=== PATIENT | female | born 1930 | race Caucasian/White ===

== ENCOUNTER 2016-11-01 08:56 | Day surgery (SDC) | payer OTHER ==
[2016-10-31 09:52] VITALS: BMI 21.6
[2016-11-01] MEDS ORDERED: MIDAZOLAM HCL 2 MG/2 ML SINGLE DOSE VIAL ONE (10:24)
[2016-11-01] MEDS ORDERED: ceFAZolin SODIUM 1 GM VIAL ONE (10:39)
[2016-11-01] MEDS ORDERED: ceFAZolin SODIUM 1 GM VIAL IVPB ONE (10:45)
[2016-11-01] MEDS ORDERED: ePHEDrine SULFATE 50 MG/1 ML AMPULE ONE (11:08)
[2016-11-01] MEDS ORDERED: NEOSTIGMINE METHYLSULFATE 0.5 MG/1 ML - 10 ML MDV ONE (11:20)
[2016-11-01] MEDS ORDERED: GLYCOPYRROLATE 0.2 MG/1 ML VIAL ONE (11:21)
--- NOTE | 2016-11-01 11:31 | OP ---
Operative Note - Note: Operative Date: 11/01/16 Pre-Operative Diagnosis: bladder tumor Operation: TURBT Findings: multiple tumors at trigone and post wall, largest at left trigone Post-Operative Diagnosis: Same as Pre-op Surgeon: Justo Luna Anesthesia: General Specimens Removed: bladder tumor Estimated Blood Loss (mls): 5
[2016-11-01] MEDS ORDERED: oxyCODONE HCL 5 MG TABLET PO PRN (11:33)
[2016-11-01] MEDS ORDERED: ONDANSETRON 4 MG/2 ML VIAL IVPUSH PRN (11:39)
[2016-11-01] MEDS ORDERED: ELECTROLYTE-148 SOLN 1,000 ML IV SCH (12:00)
--- NOTE | 2016-11-01 13:34 | OP ---
DATE OF OPERATION: 11/01/2016 PREOPERATIVE DIAGNOSIS: Multiple bladder tumors. POSTOPERATIVE DIAGNOSIS: Multiple bladder tumors. PROCEDURE: Cystoscopy, transurethral resection of bladder tumors. SURGEON: Juliet Quintero MD INDICATION: The patient is an 86-year-old female noted to be multiple bladder tumors on both cystoscopy and CT scan. She was taken to the OR for a resection. Risks, benefits, and alternatives discussed. Patient consented. DESCRIPTION OF PROCEDURE: After informed consent was obtained, the patient was taken to the OR and placed supine on the operating room table. Cardiac monitoring was administered. General anesthesia was established. She was prepped and draped in the dorsal lithotomy position. She was given a gram of Ancef. The resectoscope was inserted into the anterior urethra without difficulty and into the bladder. There were multiple papillary tumors noted on the right side of the bladder and posterior wall. The right ureteral orifice was normal. There was also some bladder tumor noted on the neck. Then on the left side of the bladder, there was a very different appearing bladder tumor that appeared sessile in nature with no visualization of the left ureteral orifice. The bladder tumors were resected in their entirety, and the bladder neck tumor was sent separately from the other tumors. All bleeding sites were fulgurated. Efflux was never seen coming from the area where the left ureteral orifice ought to be. The resectoscope was then removed, and a Narvaez was then placed to straight drainage. Clear urine was retrieved. The patient was awoken from anesthesia and transferred to the recovery room in stable condition. There were no complications. Estimated blood loss was minimal. JULIET QUINTERO M.D. [id number]
[2016-11-01 14:57] VITALS: BP 150/59; PULSE 62
[2016-11-01 15:15] VITALS: TEMP 97.4
--- NOTE | 2016-11-02 13:18 | PATH ---
Surgical Pathology Report Patient Name: TIFFANY TARANGO [facility]. Rec. #: [id number] /Age/Gender: 1930 (Age: 86) / F Account: [id number] Location: [facility] SURGICAL Taken: 11/01/2016 Received: 11/01/2016 Reported: 11/02/2016 Physicians: Justo Luna M.D. Specimen(s) Received A: BLADDER TUMOR TRANSURETHRAL RESECTION B: TUMOR BLADDER NECK Clinical History Urinary bladder tumor Final Diagnosis A. 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 LYMPHOVASCULAR INVASION: NOT DEFINITIVELY IDENTIFIED. B. 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 LAMINA PROPRIA INVASION: PRESENT. MUSCULARIS PROPRIA INVASION: SUSPICIOUS (SEE COMMENT). LYMPHOVASCULAR INVASION: NOT DEFINITIVELY IDENTIFIED. Comment: Only scant wispy smooth muscle fibers are seen in one of the fragments with background of tumor with extensive thermal artifact. While the findings are not definitive for muscularis propria invasion, in the area of the bladder neck, where muscularis propria is not anatomically prominent, these findings, while not diagnostic, are suspicious for muscularis propria invasion. The case was discussed with Dr. Luna on 11/02/16. Electronically Signed Xander Randolph M.D. Gross Description A. Received in formalin labeled "urinary bladder tumor" is a 2.0 x 1.2 x 0.2 cm aggregate of branham-pink soft tissue fragments. The formalin is filtered and the specimen is entirely submitted in one cassette. B. Received in formalin labeled "tumor bladder neck" are 2 branham soft tissue fragments averaging 0.5 cm in greatest dimension. The specimens are submitted in toto in one cassette. DL/11/01/2016 saudi11/01/2016
== END 2016-11-01 15:47 | disposition home or self-care (01) ==
LOC: JASU-SURG 08:56
PROVIDERS: ATTEND Urology
PROC: 0TBB8ZX Excision of Bladder, Via Natural or Artificial Opening Endoscopic, Diagnostic (ICD-10-PCS; principal; 2016-11-01 10:30)
DX: C67.8 Malignant neoplasm of overlapping sites of bladder (principal)
CPT/HCPCS: 88307-TC; 94760